=== PATIENT | female | born 1970 | race African-American/Black ===

== ENCOUNTER 2020-09-20 01:19 | Emergency (ER) | payer MEDICAID ==
[~2020-09-20] VITALS: Ht 172.7 cm; Wt 77.0 kg
[2020-09-20 01:28] VITALS: BP 152/82
[2020-09-20] MEDS ORDERED: MUPI15CR11 TP (02:38)
[2020-09-20] MEDS ORDERED: CEPH500C2 MT (02:38)
[2020-09-20] MEDS ORDERED: PERM60CR4 TP (02:38)
== END 2020-09-20 03:55 | disposition home or self-care (01) ==
LOC: ER 01:19
DX: B86 Scabies (principal); L03.116 Cellulitis of left lower limb; E11.9 Type 2 diabetes mellitus without complications; I10 Essential (primary) hypertension; Z98.51 Tubal ligation status
CPT/HCPCS: 99283

== ENCOUNTER 2020-11-29 20:24 | Emergency (ER) | payer SELFPAY ==
[~2020-11-29] VITALS: Ht 167.6 cm; Wt 70.0 kg
[~2020-11-29 20:24] MED LIST: CEPH500C2 MT; MUPI15CR11 TP; PERM60CR4 TP
[2020-11-29 20:28] VITALS: BP 152/83
== END 2020-11-30 00:03 | disposition left against medical advice (07) ==
LOC: ER 20:24
DX: Z20.2 Contact with and (suspected) exposure to infections with a predominantly sexual mode of transmission (principal); E11.9 Type 2 diabetes mellitus without complications; I10 Essential (primary) hypertension; Z79.899 Other long term (current) drug therapy
CPT/HCPCS: 99281

== ENCOUNTER 2020-11-30 00:14 | Emergency (ER) | payer SELFPAY ==
[~2020-11-30] VITALS: Ht 170.2 cm; Wt 68.0 kg
[2020-11-30 01:29] LABS: CLARITY URINE CLEAR (CLEAR); COLOR URINE YELLOW (YELLOW); KETONES URINE NEGATIVE (NEGATIVE); LEUKOCYTE ESTERASE URINE NEGATIVE (NEGATIVE); NITRITE URINE NEGATIVE (NEGATIVE); OCCULT BLOOD URINE NEGATIVE (NEGATIVE); PH URINE 6.5 (4.5-8.0); PROTEIN URINE NEGATIVE (NEGATIVE); SPECIFIC GRAVITY URINE 1.016 (1.005-1.030)
[2020-11-30] MEDS ORDERED: AZITHROMYCIN 500 MG TABLET PO ONE (01:45)
[2020-11-30] MEDS ORDERED: CEFTRIAXONE SODIUM 500 MG/VIAL IM ONE (01:45)
[2020-11-30 02:11] VITALS: BP 142/91
[2020-12-01 17:06] LABS: NEISSERIA GONORRHOEAE NAA Negative (Negative)
== END 2020-11-30 02:12 | disposition home or self-care (01) ==
LOC: ER 00:14
DX: Z20.2 Contact with and (suspected) exposure to infections with a predominantly sexual mode of transmission (principal); I10 Essential (primary) hypertension; E11.9 Type 2 diabetes mellitus without complications; Z79.899 Other long term (current) drug therapy
CPT/HCPCS: 81003; 81025; 87491; 87591; 96372; 99283; J0696

== ENCOUNTER 2020-12-02 21:27 | Emergency (ER) | payer SELFPAY ==
[~2020-12-02] VITALS: Ht 170.2 cm; Wt 69.0 kg
[2020-12-03 02:33] LABS: CLARITY URINE CLEAR (CLEAR); COLOR URINE YELLOW (YELLOW); KETONES URINE NEGATIVE (NEGATIVE); LEUKOCYTE ESTERASE URINE NEGATIVE (NEGATIVE); NITRITE URINE NEGATIVE (NEGATIVE); OCCULT BLOOD URINE NEGATIVE (NEGATIVE); PROTEIN URINE NEGATIVE (NEGATIVE); SPECIFIC GRAVITY URINE 1.014 (1.005-1.030)
[2020-12-03 02:45] VITALS: BP 166/78
== END 2020-12-03 02:59 | disposition home or self-care (01) ==
LOC: ER 21:27
DX: Z11.3 Encounter for screening for infections with a predominantly sexual mode of transmission (principal); N89.8 Other specified noninflammatory disorders of vagina; E11.9 Type 2 diabetes mellitus without complications; I10 Essential (primary) hypertension
CPT/HCPCS: 81003; 87210; 99283

== ENCOUNTER 2020-12-27 04:53 | Emergency (ER) | payer SELFPAY ==
[~2020-12-27] VITALS: Ht 167.6 cm; Wt 68.0 kg
[2020-12-27 07:39] VITALS: BP 173/88
[2020-12-27] MEDS ORDERED: METR-167 MT (07:58)
[2020-12-27] MEDS ORDERED: CEFTRIAXONE SODIUM 500 MG/VIAL IM ONE (08:00)
[2020-12-27] MEDS ORDERED: DOXY100T2 MT (08:03)
== END 2020-12-27 08:25 | disposition home or self-care (01) ==
LOC: ER 04:53
DX: N89.8 Other specified noninflammatory disorders of vagina (principal); A64 Unspecified sexually transmitted disease; I10 Essential (primary) hypertension; E11.9 Type 2 diabetes mellitus without complications; Z98.51 Tubal ligation status; Z79.899 Other long term (current) drug therapy
CPT/HCPCS: 96372; 99283; J0696

== ENCOUNTER 2021-02-13 02:22 | Inpatient (IN) | payer SELFPAY ==
[~2021-02-13] VITALS: Ht 170.2 cm; Wt 68.0 kg
[~2021-02-13 02:22] MED LIST changes: +DOXY100T2 MT; +METR-167 MT
[2021-02-13] MEDS ORDERED: ASPIRIN 81MG TABLET PO ONE (03:45)
[2021-02-13] MEDS ORDERED: NITROGLYCERIN 0.4MG TABLET SL SL PRN (03:45)
[2021-02-13 04:01] LABS: HEMOGLOBIN. 10.8 g/dL (12.0-16.0); MEAN CORPUSCULAR HEMOGLOBIN 23.8 pg (28.0-32.0); MEAN PLATELET VOLUME 8.1 fl (7.4-10.4); PLATELET 318 x1000/uL (130-400); RED BLOOD CELL COUNT 4.53 mill/uL (4.2-5.4); RED CELL DISTRIBUTION WIDTH 19.9 % (11.6-14.6)
[2021-02-13 04:12] LABS: D-DIMER 0.24 mg/L FEU (<0.50); PARTIAL THROMBOPLASTIN TIME 26.8 sec (23.4-31.0); PROTHROMBIN TIME 10.9 sec (9.6-11.0)
[2021-02-13 04:20] LABS: CHLORIDE 113 mEq/L (98-107)
[2021-02-13 04:39] LABS: PLATELET ESTIMATE NORMAL
[2021-02-13] MEDS ORDERED: ACETAMINOPHEN 325MG TABLET PO PRN (18:45)
[2021-02-13] MEDS ORDERED: HYDROCODONE/ACETAMINOPHEN 5/325MG TABLET PO PRN (18:45)
[2021-02-13] MEDS ORDERED: DEXTROSE 50% WATER 50ML SYRINGE IV PRN ×2 (18:45)
[2021-02-13] MEDS ORDERED: ONDANSETRON HCL 4MG/2ML INJ IV PRN (18:45)
[2021-02-13] MEDS ORDERED: MAGNESIUM/ALUMINUM HYDROXIDE/SIMETHICONE 30ML UDC PO PRN (18:45)
[2021-02-13] MEDS ORDERED: CLONIDINE 0.1MG TABLET PO PRN (18:45)
[2021-02-13 19:35] VITALS: BP 173/82
[2021-02-13] MEDS ORDERED: ENOXAPARIN 40MG/0.4ML SYR SUBCUT SCH (21:00)
[2021-02-13] MEDS ORDERED: INSULIN LISPRO 100 UNITS/ML SUBCUT SCH (21:00)
[2021-02-13] MEDS ORDERED: BLOOD SUGAR DIAGNOSTIC STRIP TEST SCH (21:00)
[2021-02-13] MEDS ORDERED: NALOXONE HCL 0.4MG/ML VIAL IV PRN (21:30)
[2021-02-14] MEDS ORDERED: OMEPRAZOLE 20MG CAPSULE EXTENDED RELEASE PO SCH (06:30)
[2021-02-14] MEDS ORDERED: LISINOPRIL 5MG TABLET PO SCH (12:00)
[2021-02-14] MEDS ORDERED: DILTIAZEM HCL 60MG TABLET PO SCH (14:00)
== END 2021-02-13 22:40 | disposition left against medical advice (07) | DRG 198 ==
LOC: ER 02:22 → MICUSO 06:00 → 6WST 21:17
PROVIDERS: ADMIT Internal Medicine; ATTEND Internal Medicine
DX: I24.9 Acute ischemic heart disease, unspecified (principal); E11.9 Type 2 diabetes mellitus without complications; Z20.822 Contact with and (suspected) exposure to COVID-19; I10 Essential (primary) hypertension; Z83.3 Family history of diabetes mellitus; Z98.51 Tubal ligation status; Z79.899 Other long term (current) drug therapy
CPT/HCPCS: 36415; 71045; 80053; 83036; 83880; 84484; 85025; 85379; 87426; 93005; 99285

== ENCOUNTER 2021-06-09 00:54 | Emergency (ER) | payer SELFPAY ==
[~2021-06-09] VITALS: Ht 170.2 cm; Wt 68.0 kg
[2021-06-09 02:26] LABS: CHLORIDE 106 mEq/L (98-107)
[2021-06-09 02:30] LABS: ETHANOL BLOOD < 10 mg/dL
[2021-06-09 02:33] LABS: BASOPHILS % 0.4 % (0.0-2.0); EOSINOPHILS % 3.9 % (0.0-5.0); HEMATOCRIT. 33.4 % (36.0-48.0); HEMOGLOBIN. 11.1 g/dL (12.0-16.0); LYMPHOCYTES % 32.2 % (20.0-50.0); MEAN CORPUSCULAR HEMOGLOBIN 27.3 pg (28.0-32.0); MEAN PLATELET VOLUME 8.6 fl (7.4-10.4); MONOCYTES % 8.9 % (2.0-8.0); NEUTROPHILS % 54.6 % (40.0-76.0); PLATELET 310 x1000/uL (130-400); RED BLOOD CELL COUNT 4.07 mill/uL (4.2-5.4); RED CELL DISTRIBUTION WIDTH 17.7 % (11.6-14.6)
[2021-06-09 02:38] LABS: HCG SCREEN NEGATIVE
[2021-06-09 03:22] LABS: CLARITY URINE CLEAR (CLEAR); COLOR URINE YELLOW (YELLOW); KETONES URINE NEGATIVE (NEGATIVE); LEUKOCYTE ESTERASE URINE NEGATIVE (NEGATIVE); NITRITE URINE NEGATIVE (NEGATIVE); OCCULT BLOOD URINE NEGATIVE (NEGATIVE); PH URINE 6.5 (4.5-8.0); PROTEIN URINE NEGATIVE (NEGATIVE); SPECIFIC GRAVITY URINE 1.005 (1.005-1.030)
[2021-06-09 03:28] VITALS: BP 132/78
[2021-06-09] MEDS: POTASSIUM CHLORIDE 20MEQ TABLET SR PO ONE ×2 (03:44→04:01)
== END 2021-06-09 04:16 | disposition home or self-care (01) ==
LOC: ER 00:54
DX: N95.1 Menopausal and female climacteric states (principal); I10 Essential (primary) hypertension; E11.9 Type 2 diabetes mellitus without complications; Z98.51 Tubal ligation status; Z59.00 Homelessness unspecified
CPT/HCPCS: 36415; 71045; 80053; 80320; 81003; 83880; 84484; 84702; 84703; 85025; 93005; 99285; G0480

== ENCOUNTER 2021-07-01 00:05 | Emergency (ER) | payer MEDICAID ==
[~2021-07-01] VITALS: Ht 167.6 cm; Wt 68.0 kg
[2021-07-01 03:50] VITALS: BP 130/92
== END 2021-07-01 04:00 | disposition home or self-care (01) ==
LOC: ER 00:05
DX: M79.10 Myalgia, unspecified site (principal); N95.1 Menopausal and female climacteric states; Z98.51 Tubal ligation status; Z59.00 Homelessness unspecified
CPT/HCPCS: 99281

== ENCOUNTER 2021-09-14 03:19 | Emergency (ER) | payer SELFPAY ==
[~2021-09-14] VITALS: Ht 170.2 cm; Wt 68.0 kg
[2021-09-14 04:11] LABS: BASOPHILS % 0.6 % (0.0-2.0); EOSINOPHILS % 4.5 % (0.0-5.0); HEMATOCRIT. 34.1 % (36.0-48.0); HEMOGLOBIN. 11.4 g/dL (12.0-16.0); LYMPHOCYTES % 45.4 % (20.0-50.0); MEAN CORPUSCULAR HEMOGLOBIN 27.5 pg (28.0-32.0); MEAN CORPUSCULAR VOLUME 82.1 fL (81.0-99.0); MEAN PLATELET VOLUME 8.8 fl (7.4-10.4); MONOCYTES % 9.7 % (2.0-8.0); NEUTROPHILS % 39.8 % (40.0-76.0); PLATELET 249 x1000/uL (130-400); RED BLOOD CELL COUNT 4.15 mill/uL (4.2-5.4); RED CELL DISTRIBUTION WIDTH 16.3 % (11.6-14.6)
[2021-09-14 04:28] LABS: CHLORIDE 112 mEq/L (98-107)
[2021-09-14] MEDS ORDERED: ASPIRIN 81MG TABLET PO ONE (05:00)
[2021-09-14] MEDS ORDERED: ACETAMINOPHEN 325MG TABLET PO ONE (05:00)
[2021-09-14] MEDS ORDERED: ONDANSETRON 4MG ODT PO ONE (05:00)
[2021-09-14 05:26] LABS: CLARITY URINE CLEAR (CLEAR); COLOR URINE YELLOW (YELLOW); KETONES URINE NEGATIVE (NEGATIVE); LEUKOCYTE ESTERASE URINE NEGATIVE (NEGATIVE); NITRITE URINE NEGATIVE (NEGATIVE); OCCULT BLOOD URINE NEGATIVE (NEGATIVE); PROTEIN URINE NEGATIVE (NEGATIVE); SPECIFIC GRAVITY URINE 1.007 (1.005-1.030)
[2021-09-14] MEDS ORDERED: AMLO5TAB88 MT (05:52)
[2021-09-14] MEDS ORDERED: POTASSIUM CHLORIDE 20MEQ TABLET SR PO ONE (06:45)
[2021-09-14 07:00] VITALS: BP 160/89
== END 2021-09-14 07:22 | disposition home or self-care (01) ==
LOC: ER 03:19
DX: I10 Essential (primary) hypertension (principal); E87.6 Hypokalemia
CPT/HCPCS: 36415; 71045; 80053; 81003; 83880; 84484; 85025; 93005; 99285; Q0162

== ENCOUNTER 2021-09-19 00:33 | Emergency (ER) | payer SELFPAY ==
[~2021-09-19] VITALS: Ht 160 cm; Wt 63.5 kg
[~2021-09-19 00:33] MED LIST changes: +AMLO5TAB88 MT
[2021-09-19] MEDS ORDERED: IBUPROFEN 600MG TABLET PO STA (04:29)
[2021-09-19] MEDS ORDERED: AMOXICILLIN/POTASSIUM CLAVULANATE 875/125MG TAB PO STA (04:36)
[2021-09-19] MEDS ORDERED: IBUP-2029 PO (04:38)
[2021-09-19] MEDS ORDERED: AMOX-424 PO (04:38)
[2021-09-19 04:50] VITALS: BP 198/109
== END 2021-09-19 05:12 | disposition home or self-care (01) ==
LOC: ER 00:33
DX: K04.7 Periapical abscess without sinus (principal); K02.9 Dental caries, unspecified; E11.9 Type 2 diabetes mellitus without complications; I10 Essential (primary) hypertension; F12.10 Cannabis abuse, uncomplicated; Z79.899 Other long term (current) drug therapy
CPT/HCPCS: 99283

== ENCOUNTER 2022-01-27 23:00 | Emergency (ER) | payer MEDICAID, OTHER ==
[~2022-01-27 23:00] MED LIST changes: +AMOX-424 PO; +IBUP-2029 PO
== END 2022-01-28 00:01 | disposition left against medical advice (07) ==
LOC: ER 23:00
DX: Z53.21 Procedure and treatment not carried out due to patient leaving prior to being seen by health care provider (principal)

== ENCOUNTER 2022-04-07 20:51 | Emergency (ER) | payer SELFPAY ==
[~2022-04-07] VITALS: Ht 167.6 cm; Wt 67.7 kg
[2022-04-07 21:13] VITALS: BP 205/96
[2022-04-08] MEDS ORDERED: NAP5EC MT (02:06)
[2022-04-08] MEDS ORDERED: AMOX1TAB16 MT (02:06)
[2022-04-08] MEDS ORDERED: OXYCODONE HCL/ACETAMINOPHEN 5/325MG TABLET PO ONE (02:15)
[2022-04-08] MEDS ORDERED: IBUPROFEN 600MG TABLET PO ONE (02:15)
[2022-04-08] MEDS ORDERED: AMOXICILLIN/POTASSIUM CLAVULANATE 875/125MG TAB PO ONE (02:15)
[2022-04-08] MEDS ORDERED: IBUPROFEN 600MG TABLET PO NR (02:45)
[2022-04-08] MEDS ORDERED: OXYCODONE HCL/ACETAMINOPHEN 5/325MG TABLET PO NR ×2 (02:45→02:48)
[2022-04-08] MEDS ORDERED: AMOXICILLIN/POTASSIUM CLAVULANATE 875/125MG TAB PO NR (02:45)
== END 2022-04-08 03:18 | disposition home or self-care (01) ==
LOC: ER 20:51
DX: K08.89 Other specified disorders of teeth and supporting structures (principal); R50.9 Fever, unspecified; E11.9 Type 2 diabetes mellitus without complications; I10 Essential (primary) hypertension; Z98.890 Other specified postprocedural states; F12.10 Cannabis abuse, uncomplicated; Z79.899 Other long term (current) drug therapy
CPT/HCPCS: 81025; 99284